=== PATIENT | male | born 1950 | race Caucasian/White ===

== ENCOUNTER → 2021-12-25 | Outpatient (CLI) | payer MEDICARE, OTHER | LOC: WCC 13:29 | DX: S51.852A Open bite of left forearm, initial encounter (principal); S61.452A Open bite of left hand, initial encounter; S61.257A Open bite of left little finger without damage to nail, initial encounter; M79.602 Pain in left arm; M79.601 Pain in right arm; I10 Essential (primary) hypertension; W54.0XXA Bitten by dog, initial encounter | CPT/HCPCS: 97597 ==